=== PATIENT | female | born 1940 | race Caucasian/White ===

== ENCOUNTER 2023-07-15 07:53 | Outpatient (CLI) | payer MEDICARE | END 2023-07-15 07:54 | disposition home or self-care (01) | LOC: CSHMRI 07:53 | PROVIDERS: ATTEND Anesthesiology Pain Medicine | DX: M51.14 Intervertebral disc disorders with radiculopathy, thoracic region (principal); M84.48XA Pathological fracture, other site, initial encounter for fracture; M48.54XD Collapsed vertebra, not elsewhere classified, thoracic region, subsequent encounter for fracture with routine healing | CPT/HCPCS: 72146 ==